=== PATIENT | male | born 1975 | race Caucasian/White ===

== ENCOUNTER 2019-08-04 15:02 | Emergency (ER) | payer MEDICAID, OTHER ==
[~2019-08-04] VITALS: Ht 170.2 cm; Wt 74.8 kg
--- NOTE | 2019-08-04 15:07 | NUR ---
Pt walked in to ER W/steady gait c/o abdominal cramping since last night.Pt reports loose stool with blood x5. Pt is A/O x4 , reports feeling dizzy. No n/v, no SOB.
[2019-08-04 15:48] LABS: BASOPHILS % (AUTO) 0.4 % (0.0-2.0); EOSINOPHILS % (AUTO) 0.6 % (0.0-7.0); HEMATOCRIT 48.6 % (36.7-47.1); HEMOGLOBIN 17.2 g/dL (12.5-16.3); LYMPHOCYTES # (AUTO) 1.2 K/uL (20.0-40.0); LYMPHOCYTES % (AUTO) 23.1 % (20.5-51.5); MEAN CORPUSCULAR HEMOGLOBIN 31.5 uug (23.8-33.4); MEAN CORPUSCULAR HGB CONC 35 g/dL (32.5-36.3); MEAN CORPUSCULAR VOLUME 89.1 fL (73.0-96.2); MONOCYTES # (AUTO) 0.7 K/uL (2.0-10.0); MONOCYTES % (AUTO) 12.6 % (0.0-11.0); NEUTROPHILS # (AUTO) 3.4 K/uL (1.8-8.9); NEUTROPHILS % (AUTO) 63.3 % (38.5-71.5); PLATELET COUNT (AUTO) 184 K/uL (152-348); RED BLOOD CELL COUNT(AUTO) 5.45 MIL/uL (4.06-5.63); WHITE BLOOD COUNT (AUTO) 5.4 K/uL (3.6-10.2)
--- NOTE | 2019-08-04 16:12 | NUR ---
ER doc at bedside.
[2019-08-04 16:28] LABS: CREATININE 0.8 mg/dL (0.6-1.3); POTASSIUM 3.9 mmol/L (3.5-5.1)
[2019-08-04] MEDS ORDERED: METRONIDAZOLE 500 MG TABLET ONE (17:24)
[2019-08-04] MEDS ORDERED: CIPROFLOXACIN HCL 250 MG TABLET ONE (17:25)
[2019-08-04] MEDS ORDERED: METRONIDAZOLE 500 MG TABLET PO ONE (17:30)
[2019-08-04] MEDS ORDERED: CIPROFLOXACIN HCL 250 MG TABLET PO ONE (17:30)
--- NOTE | 2019-08-04 17:30 | NUR ---
Patient discharged to home in stable conditon with steady gait. Written and verbal after care instructions given. Patient verbalizes understanding of instructions.
[2019-08-04 17:33] VITALS: BP 110/60
== END 2019-08-04 17:30 | disposition home or self-care (01) ==
LOC: ER 15:04
DX: K57.92 Diverticulitis of intestine, part unspecified, without perforation or abscess without bleeding (principal); K52.9 Noninfective gastroenteritis and colitis, unspecified; K92.1 Melena
CPT/HCPCS: 36415; 85025; 85730; A4663

== ENCOUNTER 2020-11-08 16:49 | Emergency (ER) | payer OTHER ==
[~2020-11-08] VITALS: Ht 167.6 cm; Wt 75.7 kg
--- NOTE | 2020-11-08 17:10 | NUR ---
45 yrs male c/o lt flanck pain for 4 days 03/02 and lower abdominal pain hx kidney stonee inserted ango cath # [address] ac bloodow and sent to lab ua sent to lab
--- NOTE | 2020-11-08 17:40 | NUR ---
seen by DR. WILSON DILUDID 0.5MG IVP GIVEN AND ZOFRAN 4MG
[2020-11-08] MEDS ORDERED: HYDROMORPHONE 1 MG/1 ML DISP.SYRIN IV ONE ×2 (18:00→19:45)
[2020-11-08] MEDS ORDERED: ONDANSETRON 4 MG/2 ML VIAL IV ONE (18:00)
[2020-11-08] MEDS ORDERED: IV NORMAL SALINE 1000 ML BAG IV ONE (18:00)
--- NOTE | 2020-11-08 18:00 | NUR ---
TO CT SCAN OF ABDOMIN
[2020-11-08] MEDS ORDERED: ONDANSETRON 4 MG/2 ML VIAL ONE (18:02)
[2020-11-08] MEDS ORDERED: HYDROMORPHONE 1 MG/1 ML DISP.SYRIN ONE (18:03)
[2020-11-08] MEDS ORDERED: LISI20TA30 PO (18:11)
[2020-11-08 18:29] LABS: BASOPHILS % (AUTO) 0.5 % (0.0-2.0); EOSINOPHILS # (AUTO) 0.1 K/uL (0.0-0.7); EOSINOPHILS % (AUTO) 0.8 % (0.0-7.0); HEMATOCRIT 51.2 % (36.7-47.1); HEMOGLOBIN 17.9 g/dL (12.5-16.3); LYMPHOCYTES % (AUTO) 24.4 % (20.5-51.5); MEAN CORPUSCULAR HEMOGLOBIN 30.6 uug (23.8-33.4); MEAN CORPUSCULAR HGB CONC 35 g/dL (32.5-36.3); MEAN CORPUSCULAR VOLUME 87.8 fL (73.0-96.2); MONOCYTES # (AUTO) 0.7 K/uL (2.0-10.0); MONOCYTES % (AUTO) 8.9 % (0.0-11.0); NEUTROPHILS # (AUTO) 5.5 K/uL (1.8-8.9); NEUTROPHILS % (AUTO) 65.4 % (38.5-71.5); PLATELET COUNT (AUTO) 214 K/uL (152-348); RED BLOOD CELL COUNT(AUTO) 5.84 MIL/uL (4.06-5.63); WHITE BLOOD COUNT (AUTO) 8.4 K/uL (3.6-10.2)
[2020-11-08 18:31] LABS: *BILIRUBIN,URIN NEGATIVE (NEGATIVE); *BLOOD, URINE 2+ (NEGATIVE); *CLARITY,URINE CLEAR (CLEAR); *COLOR,URINE YELLOW (YELLOW); *KETONES,URINE 1+ (NEGATIVE); *UROBILINOGEN,URINE 0.2 E.U./dl (NORMAL); LEUKOCYTE ESTERASE ,URINE NEGATIVE (NEGATIVE); NITRITE, URINE NEGATIVE (NEGATIVE); PH,URINE 7.5 (5.0-8.0); UGLUCOSE NEGATIVE (NEGATIVE)
[2020-11-08 18:32] LABS: CREATININE 1.2 mg/dL (0.6-1.3); POTASSIUM 4.1 mmol/L (3.5-5.1)
[2020-11-08 18:37] LABS: BILIRUBIN,DIRECT 0.1 mg/dL (0.0-0.2); BILIRUBIN,TOTAL 0.5 mg/dL (0.2-1.0); TOTAL PROTEIN, SERUM 8.1 g/dL (6.4-8.2)
[2020-11-08 18:57] LABS: BACTERIA,URINE FEW /HPF (NONE SEEN); SQUAMOUS EPITHELIAL CELL,UR FEW /HPF (NONE SEEN); URINE AMORPHOUS PHOSPHATES MANY /HPF
[2020-11-08 18:58] LABS: MUCUS,URINE FEW /LPF (0-FEW)
[2020-11-08] MEDS ORDERED: TAMS-3 PO (19:30)
[2020-11-08] MEDS ORDERED: HYDR-3980 PO (19:30)
--- NOTE | 2020-11-08 19:42 | NUR ---
HAND OFF TO KELLY SALAS AND SHEREE SALAS
[2020-11-08] MEDS ORDERED: KETOROLAC TROMETHAMINE 30 MG INJ IVP ONE (19:45)
--- NOTE | 2020-11-08 20:25 | NUR ---
Patient discharged to home in stable condition. Written and verbal after care instructions given. Patient verbalizes understanding of instructions. Stressed follow up or return to ER for worsening s/s. Patient family member taking him home.
[2020-11-08 21:23] VITALS: BP 165/98
== END 2020-11-08 20:19 | disposition home or self-care (01) ==
LOC: ER 16:50
DX: N13.2 Hydronephrosis with renal and ureteral calculous obstruction (principal); Z87.442 Personal history of urinary calculi; I10 Essential (primary) hypertension; R94.31 Abnormal electrocardiogram [ECG] [EKG]
CPT/HCPCS: 36415; 71045; 74176; 80048; 80076; 81001; 83690; 84484; 85025; 85730; 87086; 93005; 96374; 96375; 99285; J1170; J2405; 70030-TC; A4663

== ENCOUNTER 2021-04-01 14:37 | Emergency (ER) | payer OTHER ==
[~2021-04-01] VITALS: Ht 167.6 cm; Wt 78.0 kg
[~2021-04-01 14:37] MED LIST: HYDR-3980 PO; LISI20TA30 PO; TAMS-3 PO
--- NOTE | 2021-04-01 14:55 | NUR ---
noted at bedside
[2021-04-01] MEDS ORDERED: HYDROCODONE/APAP 5-325MG TABLET PO ONE (15:00)
[2021-04-01] MEDS ORDERED: predniSONE 20 MG TABLET PO ONE (15:00)
[2021-04-01] MEDS ORDERED: predniSONE 50 MG TABLET ONE (15:15)
[2021-04-01] MEDS ORDERED: predniSONE 10 MG TABLET ONE (15:15)
[2021-04-01] MEDS ORDERED: HYDROCODONE/APAP 5-325MG TABLET ONE (15:15)
--- NOTE | 2021-04-01 15:17 | NUR ---
X-ray tech noted at bedside
[2021-04-01] MEDS ORDERED: PRED20TA PO (15:59)
[2021-04-01] MEDS ORDERED: HYDR-4209 PO (15:59)
[2021-04-01] MEDS ORDERED: CEPH500C2 PO (15:59)
--- NOTE | 2021-04-01 16:07 | NUR ---
DISCHARGE INSTRUCTIONS GIVEN; SURGICAL SHOE APPLIED; CRUTCHES DISPENSED; GAIT TRAINING DONE .
[2021-04-01 16:08] VITALS: BP 143/88
== END 2021-04-01 16:11 | disposition home or self-care (01) ==
LOC: ER 14:40
DX: M10.9 Gout, unspecified (principal); M19.90 Unspecified osteoarthritis, unspecified site; R03.0 Elevated blood-pressure reading, without diagnosis of hypertension
CPT/HCPCS: 73660; 99283; J7512 ×2; A4663

== ENCOUNTER 2021-04-07 11:24 | Emergency (ER) | payer OTHER ==
[~2021-04-07] VITALS: Ht 170.2 cm; Wt 77.1 kg
[~2021-04-07 11:24] MED LIST changes: +CEPH500C2 PO; +HYDR-4209 PO; +PRED20TA PO
--- NOTE | 2021-04-07 12:00 | NUR ---
at [facility] for assessment
[2021-04-07] MEDS ORDERED: IV NORMAL SALINE 1000 ML BAG IV ONE ×2 (12:15→14:00)
[2021-04-07 12:21] LABS: HEMATOCRIT 49.7 % (36.7-47.1); MEAN CORPUSCULAR HEMOGLOBIN 30.9 uug (23.8-33.4); MEAN CORPUSCULAR VOLUME 87.8 fL (73.0-96.2); PLATELET COUNT (AUTO) 199 K/uL (152-348)
[2021-04-07 12:36] LABS: POTASSIUM 3.7 mmol/L (3.5-5.1)
[2021-04-07 12:42] LABS: BILIRUBIN,DIRECT 0.1 mg/dL (0.0-0.2); BILIRUBIN,TOTAL 0.5 mg/dL (0.2-1.0)
--- NOTE | 2021-04-07 12:50 | NUR ---
Patient asked to give sample of stool and urine, patient gave sample specimen of urine mixed with stool, specimen discarded and patient asked to repeat specimen and to the samples
[2021-04-07] MEDS ORDERED: LOPERAMIDE HCL 2 MG CAPSULE PO ONE (14:00)
[2021-04-07] MEDS ORDERED: LOPERAMIDE HCL 2 MG CAPSULE ONE (14:40)
--- NOTE | 2021-04-07 15:18 | NUR ---
IV removed. Catheter intact and site benign. Pressure and 4x4 gauze applied to site. No bleeding noted.
--- NOTE | 2021-04-07 15:18 | NUR ---
Patient discharged to home in stable condition with family. Written and verbal after care instructions given. Patient verbalizes understanding of instructions. Stressed follow up or return to ER for worsening s/s.
[2021-04-07 15:19] VITALS: BP 119/79
== END 2021-04-07 15:19 | disposition home or self-care (01) ==
LOC: ER 11:24
DX: K52.9 Noninfective gastroenteritis and colitis, unspecified (principal); E86.0 Dehydration; M10.9 Gout, unspecified; M19.90 Unspecified osteoarthritis, unspecified site; Z87.19 Personal history of other diseases of the digestive system
CPT/HCPCS: 36415; 83690; 85025; 89055; A4663; J7030